=== PATIENT | male | born 1990 | race Caucasian/White ===

== ENCOUNTER 2020-10-10 18:56 | Emergency (ER) | payer MEDICARE, BC, SELFPAY ==
[2020-10-10 19:12] VITALS: BP 140/80; PULSE 77; RESP 16; TEMP 36.7; O2SAT 100
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
== END 2020-10-10 19:36 | disposition home or self-care (01) ==
PROVIDERS: Emergency Provider Nurse Practitioner; PCP Internal Medicine
DX: L03.115 Cellulitis of right lower limb (principal)
CPT/HCPCS: 99213; G0463